=== PATIENT | male | born 1960 | race Two or more races ===

== ENCOUNTER 2017-02-28 06:21 | Inpatient (IN) | payer MEDICAID ==
[~2017-02-28] VITALS: Ht 170.2 cm; Wt 85.2 kg
[2017-02-28] MEDS ORDERED: BUPIVACAINE 0.25% INJ 50ML VIAL ONE (07:35)
[2017-02-28] MEDS ORDERED: ceFAZolin 1GM VL ONE (07:35)
[2017-02-28 07:51] LABS: Basophils # (auto) 0 uL; Basophils % (auto) 0.6 % (0.0-2.0); Eosinophils # (auto) 0.2 uL; Eosinophils % (auto) 3.2 % (0.0-7.0); Hematocrit 42.8 % (41.0-53.0); Hemoglobin 14.4 g/dL (13.5-17.5); Lymphocytes % (auto) 35.6 % (10.0-50.0); Mean Corpuscular Hemoglobin 29.7 pg (28.0-32.0); Mean Corpuscular Hgb Conc. 33.8 g/dL (32.0-36.0); Mean Corpuscular Volume 87.8 fL (80.0-100.0); Mean Platelet Volume 8.8 fL (7.4-10.4); Monocytes # (auto) 0.5 uL; Neutrophils % (auto) 52.6 % (37.0-80.0); Platelet Count (auto) 257 10^3/uL (140-450); Red Cell Distribution Width 12.6 % (11.6-16.0); White Blood Cell 5.7 10^3/uL (4.4-10.8)
[2017-02-28 08:02] LABS: INR 0.92 (0.9-1.15); Partial Thromboplastin Time 31.3 sec (22.64-33.71)
[2017-02-28] MEDS ORDERED: ceFAZolin 1GM/50ML D5W 50 ML IV ONE (08:02)
[2017-02-28 08:12] LABS: BUN/Creatinine Ratio 23.3; Calcium 9.3 mg/dL (8.5-10.1); Potassium 4.5 mmol/L (3.5-5.1)
[2017-02-28] MEDS ORDERED: MIDAZOLAM HCL 1MG/1ML-2 ML VIAL ONE (08:29)
[2017-02-28] MEDS ORDERED: fentaNYL CITRATE 100 MCG/2 ML VL ONE ×3 (08:29→09:21)
[2017-02-28] MEDS ORDERED: ROCURONIUM 10MG/ML 10ML VIAL IV ONE ×2 (08:29→08:31)
[2017-02-28] MEDS ORDERED: PROPOFOL 10 MG/ML 20 ML IV ONE (08:29)
[2017-02-28] MEDS ORDERED: NEOSTIGMINE 1 MG/ML INJ (10mg/10ML VIAL) IV ONE (08:31)
[2017-02-28] MEDS ORDERED: GLYCOPYRROLATE 0.2 MG/ML 1ML VIAL IV ONE (08:31)
[2017-02-28] MEDS ORDERED: ONDANSETRON HCL 4 MG/2 ML VIAL IV ONE (10:45)
[2017-02-28] MEDS ORDERED: ePHEDrine SULFATE 50 MG/ML AMP IV PRN (10:45)
[2017-02-28] MEDS: HYDROmorphone HCL 2 MG/ML VL IV PRN ×4 (10:51→11:36)
[2017-02-28] MEDS: hydrALAZINE HCL 20 MG/ML VL IV PRN ×2 (11:32→12:01)
[2017-02-28] MEDS ORDERED: HYDROcodone-ACET 5/325MG TAB PO PRN (15:45)
[2017-02-28] MEDS ORDERED: MORPHINE SULF INJ 2 MG/ML SYRINGE 1ML IV PRN (15:45)
[2017-02-28] MEDS: SODIUM CHLORIDE 0.9% 1,000 ML IV SCH (18:31)
[2017-02-28 20:00] VITALS: BP 138/84
[2017-02-28] MEDS: IPRATROPIUM BROM 0.5 MG/2.5ML INH SOL NEB SCH (20:39)
[2017-02-28] MEDS: ALBUTEROL SULF 2.5 MG/0.5ML(0.5%) NEB SOLN NEB SCH (20:40)
[2017-02-28 21:53] VITALS: BP 144/90
[2017-02-28 22:00] VITALS: BP 138/84
[2017-03-01 05:00] VITALS: BP 156/94
[2017-03-01 07:09] LABS: Basophils # (auto) 0 uL; Basophils % (auto) 0.4 % (0.0-2.0); Eosinophils # (auto) 0.1 uL; Eosinophils % (auto) 0.9 % (0.0-7.0); Hematocrit 42.3 % (41.0-53.0); Hemoglobin 14.1 g/dL (13.5-17.5); Lymphocytes # (auto) 1.8 uL; Lymphocytes % (auto) 17.5 % (10.0-50.0); Mean Corpuscular Hemoglobin 29.4 pg (28.0-32.0); Mean Corpuscular Hgb Conc. 33.4 g/dL (32.0-36.0); Mean Corpuscular Volume 87.9 fL (80.0-100.0); Mean Platelet Volume 8.8 fL (7.4-10.4); Monocytes # (auto) 0.9 uL; Monocytes % (auto) 8.6 % (0.0-12.0); Neutrophils # (auto) 7.4 uL; Neutrophils % (auto) 72.6 % (37.0-80.0); Platelet Count (auto) 277 10^3/uL (140-450); Red Cell Distribution Width 12.9 % (11.6-16.0); White Blood Cell 10.3 10^3/uL (4.4-10.8)
[2017-03-01 07:18] LABS: BUN/Creatinine Ratio 13.8; Calcium 8.5 mg/dL (8.5-10.1)
[2017-03-01] MEDS: SODIUM CHLORIDE 0.9% 1,000 ML IV SCH (07:30)
[2017-03-01 08:00] VITALS: BP 145/88
[2017-03-01] MEDS: IPRATROPIUM BROM 0.5 MG/2.5ML INH SOL NEB SCH (08:12)
[2017-03-01] MEDS: ALBUTEROL SULF 2.5 MG/0.5ML(0.5%) NEB SOLN NEB SCH (08:12)
[2017-03-01 09:00] VITALS: BP 145/88
[2017-03-01] MEDS: hydrALAZINE HCL 20 MG/ML VL IV PRN (10:44)
== END 2017-03-01 12:00 | disposition home or self-care (01) | DRG 228 ==
LOC: SUR 06:21 → TELE-CENTR 06:22 → CENTRAL 19:09
PROVIDERS: ADMIT Surgery; ATTEND Internal Medicine
PROC: 8E0W4CZ Robotic Assisted Procedure of Trunk Region, Percutaneous Endoscopic Approach (ICD-10-PCS; 2017-02-28)
PROC: 0YU64JZ Supplement Left Inguinal Region with Synthetic Substitute, Percutaneous Endoscopic Approach (ICD-10-PCS; principal; 2017-02-28 08:31)
DX: K40.90 Unilateral inguinal hernia, without obstruction or gangrene, not specified as recurrent (principal); J98.11 Atelectasis
CPT/HCPCS: 36415; 71010; 80048; 85025; 85610; 85730; 86850; 86900; 86901; 94640; J0690; J2250; J2704; J3490